=== PATIENT | female | born 1955 | race Native Hawaiian/Other Pacific Islander ===

== ENCOUNTER 2016-12-23 15:43 | Outpatient (CLI) | payer OTHER | END 2016-12-23 16:43 | disposition home or self-care (01) | LOC: RESP 15:43 | DX: G56.21 Lesion of ulnar nerve, right upper limb (principal) | CPT/HCPCS: 95909 ==

== ENCOUNTER 2019-10-01 18:05 | Outpatient (CLI) | payer OTHER | END 2019-10-01 18:19 | disposition short-term general hospital (02) | LOC: AMB 18:05 | DX: I46.9 Cardiac arrest, cause unspecified (principal) | CPT/HCPCS: A0425; A0433 ==

== ENCOUNTER 2019-10-01 18:21 | Emergency (ER) | payer OTHER ==
[~2019-10-01] VITALS: Ht 157.5 cm; Wt 90.7 kg
== END 2019-10-01 20:25 | disposition still patient (30) ==
LOC: ED 18:33
DX: I46.9 Cardiac arrest, cause unspecified (principal); I24.9 Acute ischemic heart disease, unspecified
CPT/HCPCS: 36415; 92950; 96374; 96375; 96376; 99291; J0171; J0461; J1815; J2310; J7060